=== PATIENT | female | born 1945 | race Caucasian/White ===

== ENCOUNTER → 2016-08-04 | Outpatient (CLI) | payer MEDICARE, BC ==
[~2016-08-04] MED LIST: CYCL-83 PO; HYDR-1372 PO; NAPR220C11 PO; PHEN10TA PO; PRAV10TA26 PO
== END ==
LOC: WC.BC 12:59
DX: Z12.31 Encounter for screening mammogram for malignant neoplasm of breast (principal); N64.59 Other signs and symptoms in breast
CPT/HCPCS: 77063; G0202